=== PATIENT | male | born 1965 | race Caucasian/White ===

== ENCOUNTER 2018-07-20 17:09 | Inpatient (IN) | payer OTHER ==
[2018-07-20] MEDS ORDERED: Sodium Chloride 0.9% 1000 ML 1,000 ML IV STA ×3 (17:30→17:41)
[2018-07-20] MEDS ORDERED: Zofran 4 MG/2 ML VIAL IV ONE (17:32)
[2018-07-20] MEDS ORDERED: MORPHINE SULFATE 4 MG INJ IV ONE ×2 (17:32→18:11)
[2018-07-20] MEDS ORDERED: ROCEPHIN 1 Gm-D5w 50 ml Bag** 1 G/50 ML IVPB IV STA (17:34)
[2018-07-20] MEDS ORDERED: TYLENOL 325 MG PO ONE (17:35)
[2018-07-20] MEDS ORDERED: Zofran 4 MG/2 ML VIAL ONE (17:39)
[2018-07-20] MEDS ORDERED: Sodium Chloride 0.9% 1000 ML 2,000 ML ONE (17:39)
[2018-07-20] MEDS ORDERED: TYLENOL 325 MG ONE (17:39)
[2018-07-20] MEDS ORDERED: MORPHINE SULFATE 4 MG INJ ONE ×2 (17:39→18:16)
[2018-07-20] MEDS ORDERED: ROCEPHIN 1 Gm-D5w 50 ml Bag** 1 G/50 ML IVPB IV ONE (17:39)
--- NOTE | 2018-07-20 17:40 | ERPHSYRPT ---
- History of Present Illness Source: patient Exam Limitations: no limitations Patient Subjective Stated Complaint: pt states he has had a "cold, sinus stuff and a fever for a week". pt reports today approx 1100 pt was laying on couch when he had sudden onset of left back pain that radiated around left ribs to chest. Triage Nursing Assessment: PALE/WARM/DIAPHORETIC, RESP SHALLOW AND RAPID PT STATES DUE TO PAIN HE IS UNABLE TO TAKE A DEEP ENOUGH BREATH, A&OX4, ABLE TO STAND FROM WHEELCHAIR AND GET INTO BED WITHOUT DIFFICULTY. Timing/Duration: other (upper respiratory symptoms and fever for one week pain left lower chest radiating to back, worse with breathing, symptoms since 11: 00 today) Severity: moderate Modifying Factors: Improves With: other (Pain worse with deep breathing) Associated Symptoms: shortness of breath (Short of breath because it hurts to breath), diaphoresis, chest pain (Sharp pain left lower chest worse with breathing radiates to back), fever, malaise, No nausea, No vomiting, No abdominal pain, No heartburn, No cough, No chills, No headaches, No loss of appetite, No rash, No syncope, No seizure, No weakness Hx Tetanus, Diphtheria Vaccination/Date Given: No Hx Influenza Vaccination/Date Given: No Hx Pneumococcal Vaccination/Date Given: No Immunizations Up to Date: Yes <MARIANELA GOMEZ - Last Filed: 07/20/18 19:08> <MANN MUNOZ - Last Filed: 07/20/18 21:23> - History of Present Illness Time Seen by Provider: 07/20/18 17:25 Physician History: Is a 53-year-old white male who states she's been previously healthy arrives with a complaint of cold, sinus symptoms with increased temperature for one week however he states that beginning at 11:00 this evening he began to have pain in the left lower chest sharp radiating to his back worse with breathing. Patient arrives markedly diaphoretic he states it hurts to breathe. He denies any injury. He states he has not been having any vomiting. Past medical history patient denies. Past surgical history includes wisdom teeth. Social history positive chews tobacco 2-3 beers a day. (MARIANELA GOMEZ) The patient is a 53-year-old male with a friend complaining of a sudden onset of left rib pain in his back, his side, and front that began this afternoon. It worsens significantly as they were driving to the hospital. It was hurting so much that it was hard for him to breathe and he began to sweat profusely. Dr. Gomez began the workup and gave him 3 L of normal saline, morphine 8 mg, and Rocephin 1 g by IV. The patient is feeling better now. Today is Thursday, on Thursday the patient did not feel well. He had a fever and muscle aches. On Thursday he felt worse was tremendous muscle pains. He did not go to work on Thursday because of the fever and not feeling well. He denies vomiting or diarrhea. He states he had a sinus headache area. His past medical history is unremarkable. He takes no prescription medicines. ( MANN MUNOZ) Allergies/Adverse Reactions: No Known Drug Allergies Allergy (Unverified 07/20/18 17:22) Home Medications: Mv-Mn/Folic Acid/Lutein/[id number] [Pawel Multi For Men Tablet] 1 tab PO DAILY [History] Naproxen Sodium [Aleve] 440 mg PO DAILY 07/20/18 [History] - Review of Systems Constitutional: Fever, No Chills, No Fatigue, No Lethargy, No Night Sweats, No Weakness, No Weight Loss, No Other Eyes: No Symptoms Ears, Nose, & Throat: Nose Congestion, Nose Discharge, No Ear Pain, No Ear Discharge, No Hearing Changes, No Tinnitus, No Nose Pain, No Sinus Drainage, No Epistaxis, No Mouth Pain, No Mouth Swelling, No Loose Teeth, No Throat Pain, No Throat Swelling, No Hoarse, No Painful Swallowing, No Snoring, No Stridor Respiratory: Dyspnea, Other (Pain with breathing left lower chest radiates to back sharp) Cardiac: Chest Pain (sharp pain left lower chest with breathing radiates to back ) Abdominal/Gastrointestinal: No Abdominal Pain, No Nausea, No Vomiting, No Diarrhea Genitourinary Symptoms: No Dysuria Musculoskeletal: Back Pain, No Neck Pain Skin: No Rash Neurological: No Dizziness, No Focal Weakness, No Sensory Changes Psychological: No Symptoms Endocrine: No Symptoms All Other Systems: Reviewed and Negative <MARIANELA GOMEZ - Last Filed: 07/20/18 19:08> - Past Medical History Pertinent Past Medical History: No - Past Surgical History Past Surgical History: Yes Other Surgical History: WISDOM TEETH - Social History Smoking Status: Never smoker Exposure to second hand smoke: No Drug Use: none Patient Lives Alone: No <MARIANELA GOMEZ - Last Filed: 07/20/18 19:08> - Physical Exam General Appearance: moderate distress, alert, other (well-developed white male . Diaphoretic somewhat dusky in appearance, alert, oriented 3) Ears, Nose, Throat Exam: normal ENT inspection, TMs normal, pharynx normal, moist mucous membranes Neck Exam: normal inspection, non-tender, supple, full range of motion Respiratory Exam: diminished breath sounds, rhonchi (scattered rhonchi), other ( breath sounds present bilaterally, pain with breathing left lower chest) Cardiovascular Exam: tachycardia, capillary refill <2 sec Gastrointestinal/Abdomen Exam: soft, normal bowel sounds, No tenderness, No mass Back Exam: normal inspection, normal range of motion, No CVA tenderness, No vertebral tenderness Extremity Exam: normal inspection, normal range of motion, pelvis stable Neurologic Exam: alert, oriented x 3, cooperative, 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 design 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-XII 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 as tested, normal mood/affect, nml cerebellar function, nml station & gait, sensation nml, No motor deficits Skin Exam: other (dusky in appearance) SpO2 Interpretation: normal (94%) SpO2: 94 <MARIANELA GOMEZ - Last Filed: 07/20/18 19:08> - Physical Exam Respiratory Exam: chest tenderness (left anterior) Back Exam: point tenderness (left posterior rib pain) <MANN MUNOZ - Last Filed: 07/20/18 21:23> - Nursing Vital Signs Nursing Vital Signs: Initial Vital Signs Temperature 102.0 F 07/20/18 17:11 Pulse Rate 108 H 07/20/18 17:11 Respiratory Rate 28 H 07/20/18 17:11 Blood Pressure 149/99 07/20/18 17:11 O2 Sat by Pulse Oximetry 94 L 07/20/18 17:11 Pain Scale Pain Intensity 4 - Course Nursing assessment & vital signs reviewed: Yes EKG Interpreted by Me: RATE (109 bpm), Sinus Tach, NORMAL AXIS, Other (EKG: Sinus tachycardia 109 bpm, normal axis, no acute ST or T wave changes) <MARIANELA GOMEZ - Last Filed: 07/20/18 19:08> - Radiology Exams Chest X-ray Interpretation: Interpreted by me, No Pneumonia, Other (poor inspiratory effort; possible bilateral plueral effusions. no comp) - CT Exams Chest CT Interpretation: Tele-radiologist Report (per Dr Gonzalez), No PE (no central PE), Other (bibasilar atselecstasis; L>R effusion) <MANN MUNOZ - Last Filed: 07/20/18 21:23> Ordered Tests: Active Orders 24 hr Category Date Time Status Lard Refiner STAT Care 07/20/18 17:31 Active EKG-ER Only STAT Care 07/20/18 17:23 Active IV Insertion STAT Care 07/20/18 17:23 Active IV Insertion-2nd Peripheral STAT Care 07/20/18 17:39 Active Oxygen-ED Only Nasal Cannula 2 lpm Care 07/20/18 17:58 Active CHEST 1 VIEW (PORTABLE) Stat Exams 07/20/18 17:31 Taken CHEST WITH CONTRAST [CT] Stat Exams 07/20/18 18:16 Taken AMYLASE Stat Lab 07/20/18 20:00 Completed BLOOD CULTURE Stat Lab 07/20/18 18:30 Received CBC W DIFF Stat Lab 07/20/18 17:30 Completed CMP Stat Lab 07/20/18 17:30 Completed CULTURE,SPUTUM Stat Lab 07/20/18 17:31 Uncollected D-DIMER QUANTITATION Stat Lab 07/20/18 17:30 Completed LIPASE Stat Lab 07/20/18 20:00 Completed Lactic Acid Stat Lab 07/20/18 17:55 Completed Lactic Acid Stat Lab 07/20/18 20:00 Ordered NT PRO BNP Stat Lab 07/20/18 17:30 Completed PROTIME WITH INR Stat Lab 07/20/18 17:30 Completed PTT Stat Lab 07/20/18 17:30 Completed TROPONIN Q3H Lab 07/20/18 17:30 Completed TROPONIN Q3H Lab 07/20/18 20:30 Ordered TROPONIN Q3H Lab 07/20/18 23:30 Ordered TROPONIN Q3H Lab 07/21/18 02:30 Ordered TROPONIN Q3H Lab 07/21/18 05:30 Ordered UA W/RFX UR CULTURE Stat Lab 07/20/18 18:30 Completed VENOUS BLOOD GAS Stat Lab 07/20/18 17:55 Completed Medication Summary Discontinued Medications Generic Name Dose Route Start Last Admin Trade Name Freq PRN Reason Stop Dose Admin Acetaminophen 975 mg 07/20/18 17:35 07/20/18 17:44 Tylenol 325 Mg PO 07/20/18 17:36 975 mg STAT ONE Administration Acetaminophen Confirm 07/20/18 17:39 Tylenol 325 Mg Administered 07/20/18 17:40 Dose 975 mg .ROUTE .STK-MED ONE Sodium Chloride 1,000 mls @ 999 mls/hr 07/20/18 17:30 07/20/18 18:43 Sodium Chloride 0.9% 1000 Ml IV 07/20/18 18:30 Infused .Q1H1M STA Infusion Sodium Chloride 1,000 mls @ 999 mls/hr 07/20/18 17:32 07/20/18 18:44 Sodium Chloride 0.9% 1000 Ml IV 07/20/18 18:32 Infused .Q1H1M STA Infusion Ceftriaxone Sodium/Dextrose 1 g in 50 mls @ 100 mls/hr 07/20/18 17:34 18:15 Rocephin 1 Gm-D5w 50 Ml Bag IV 07/20/18 18:03 Infused STAT STA Infusion Sodium Chloride Confirm 07/20/18 17:39 Sodium Chloride 0.9% 1000 Ml Administered 07/20/18 17:40 Dose 2,000 mls @ ud .ROUTE .STK-MED ONE Ceftriaxone Sodium/Dextrose Confirm 07/20/18 17:39 Rocephin 1 Gm-D5w 50 Ml Bag Administered 07/20/18 17:40 Dose 1 g in 50 mls @ ud IV .STK-MED ONE Sodium Chloride 1,000 mls @ 999 mls/hr 07/20/18 17:41 07/20/18 19:22 Sodium Chloride 0.9% 1000 Ml IV 07/20/18 18:41 Infused .Q1H1M STA Infusion Sodium Chloride Confirm 07/20/18 18:16 Sodium Chloride 0.9% 1000 Ml Administered 07/20/18 18:17 Dose 1,000 mls @ ud .ROUTE .STK-MED ONE Morphine Sulfate 4 mg 07/20/18 17:32 07/20/18 17:43 Morphine Sulfate 4 Mg Inj IV 07/20/18 17:33 4 mg STAT ONE Administration Morphine Sulfate Confirm 07/20/18 17:39 Morphine Sulfate 4 Mg Inj Administered 07/20/18 17:40 Dose 4 mg .ROUTE .STK-MED ONE Morphine Sulfate 4 mg 07/20/18 18:11 07/20/18 18:22 Morphine Sulfate 4 Mg Inj IV 07/20/18 18:12 4 mg STAT ONE Administration Morphine Sulfate Confirm 07/20/18 18:16 Morphine Sulfate 4 Mg Inj Administered 07/20/18 18:17 Dose 4 mg .ROUTE .STK-MED ONE Ondansetron HCl 4 mg 07/20/18 17:32 07/20/18 17:43 Zofran 4 Mg/2 Ml Vial IV 07/20/18 17:33 4 mg STAT ONE Administration Ondansetron HCl Confirm 07/20/18 17:39 Zofran 4 Mg/2 Ml Vial Administered 07/20/18 17:40 Dose 4 mg .ROUTE .STK-MED ONE Lab/Rad Data: Laboratory Result Diagrams 07/20/18 17:30 07/20/18 17:30 Laboratory Results 07/20/18 07/20/18 07/20/18 Range/Units Unknown 20:00 18:30 WBC (4.0-10.5) K/mm3 RBC (4.1-5.6) M/mm3 Hgb (12.5-18.0) gm/dl Hct (42-50) % MCV (78-100) fl MCH (26-32) pg MCHC (32-36) g/dl RDW (11.5-14.0) % Plt Count (150-450) K/mm3 MPV (6-9.5) fl Gran % (36.0-66.0) % Eos # (Auto) (0-0.5) Absolute Lymphs (auto) (1.0-4.6) Absolute Monos (auto) (0.0-1.3) Lymphocytes % (24.0-44.0) % Monocytes % (0.0-12.0) % Eosinophils % (0.00-5.0) % Basophils % (0.0-0.4) % Absolute Granulocytes (1.4-6.9) Basophils # (0-0.4) PT (8.83-12.87) SECONDS INR (0.8-3.0) APTT (24.1-36.1) SECONDS D-Dimer (215-500) ng/mL pO2/FiO2 Ratio % VBG pH (7.32-7.42) VBG pCO2 at Pat Temp (42-55) mm/Hg VBG pO2 at Pat Temp (25-40) mm/Hg VBG HCO3 (22-28) meq/L VBG O2 Sat (Neil) (95-100) VBG Base Excess (-2.0-2.0) VBG Hemoglobin VBG Carboxyhemoglobin (0.0-6.9) % T HGB POC Potassium (3.5-5.1) Sodium (137-145) mmol/L Potassium (3.5-5.1) mmol/L Chloride (98-107) mmol/L Carbon Dioxide (22-30) mmol/L Anion Gap (5-15) MEQ/L BUN (9-20) mg/dL Creatinine (0.66-1.25) mg/dL Estimated GFR ML/MIN Glucose (74-106) mg/dL Lactic Acid (0.4-2.0) Calcium (8.4-10.2) mg/dL Total Bilirubin (0.2-1.3) mg/dL AST (17-59) U/L ALT (0-50) U/L Alkaline Phosphatase (38-126) U/L Troponin I (0.000-0.034) ng/mL NT-Pro-B Natriuret Pep (0-900) pg/mL Serum Total Protein (6.3-8.2) g/dL Albumin (3.5-5.0) g/dL Amylase < 30 L (30-110) U/L Lipase 26 (23-300) U/L Urine Color YELLOW (YELLOW) Urine Appearance CLEAR (CLEAR) Urine pH 5.0 (5-6) Ur Specific [place] 1.025 (1.005-1.025) Urine Protein NEGATIVE (Negative) Urine Ketones NEGATIVE (NEGATIVE) Urine Blood NEGATIVE (0-5) Hunter/ul Urine Nitrite NEGATIVE (NEGATIVE) Urine Bilirubin NEGATIVE (NEGATIVE) Urine Urobilinogen NORMAL (0-1) mg/dL Ur Leukocyte Esterase NEGATIVE (NEGATIVE) Urine Culture Reflexed NO (NO) Urine Glucose NEGATIVE (NEGATIVE) mg/dL Influenza Type A Ag (NEGATIVE) Influenza Type B Ag (NEGATIVE) RSV (PCR) (Negative) Group A Strep Antibody NEGATIVE (NEGATIVE) 07/20/18 07/20/18 07/20/18 Range/Units 17:55 17:30 17:30 WBC (4.0-10.5) K/mm3 RBC (4.1-5.6) M/mm3 Hgb (12.5-18.0) gm/dl Hct (42-50) % MCV (78-100) fl MCH (26-32) pg MCHC (32-36) g/dl RDW (11.5-14.0) % Plt Count (150-450) K/mm3 MPV (6-9.5) fl Gran % (36.0-66.0) % Eos # (Auto) (0-0.5) Absolute Lymphs (auto) (1.0-4.6) Absolute Monos (auto) (0.0-1.3) Lymphocytes % (24.0-44.0) % Monocytes % (0.0-12.0) % Eosinophils % (0.00-5.0) % Basophils % (0.0-0.4) % Absolute Granulocytes (1.4-6.9) Basophils # (0-0.4) PT 14.3 H (8.83-12.87) SECONDS INR 1.23 (0.8-3.0) APTT 25.3 (24.1-36.1) SECONDS D-Dimer 535 H* (215-500) ng/mL pO2/FiO2 Ratio 21.0 % VBG pH 7.39 (7.32-7.42) VBG pCO2 at Pat Temp 40 L (42-55) mm/Hg VBG pO2 at Pat Temp 50 H (25-40) mm/Hg VBG HCO3 24.2 (22-28) meq/L VBG O2 Sat (Neil) 90.9 L (95-100) VBG Base Excess -0.7 (-2.0-2.0) VBG Hemoglobin 16.1 VBG Carboxyhemoglobin 3.5 (0.0-6.9) % T HGB POC Potassium 4.0 (3.5-5.1) Sodium 138 (137-145) mmol/L Potassium 4.3 (3.5-5.1) mmol/L Chloride 100 (98-107) mmol/L Carbon Dioxide 25 (22-30) mmol/L Anion Gap 17.3 H (5-15) MEQ/L BUN 19 (9-20) mg/dL Creatinine 1.00 (0.66-1.25) mg/dL Estimated GFR > 60.0 ML/MIN Glucose 132 H (74-106) mg/dL Lactic Acid 1.6 (0.4-2.0) Calcium 9.6 (8.4-10.2) mg/dL Total Bilirubin 1.00 (0.2-1.3) mg/dL AST 29 (17-59) U/L ALT 34 (0-50) U/L Alkaline Phosphatase 93 (38-126) U/L Troponin I (0.000-0.034) ng/mL NT-Pro-B Natriuret Pep 16.9 (0-900) pg/mL Serum Total Protein 8.7 H (6.3-8.2) g/dL Albumin 4.9 (3.5-5.0) g/dL Amylase (30-110) U/L Lipase (23-300) U/L Urine Color (YELLOW) Urine Appearance (CLEAR) Urine pH (5-6) Ur Specific [place] (1.005-1.025) Urine Protein (Negative) Urine Ketones (NEGATIVE) Urine Blood (0-5) Hunter/ul Urine Nitrite (NEGATIVE) Urine Bilirubin (NEGATIVE) Urine Urobilinogen (0-1) mg/dL Ur Leukocyte Esterase (NEGATIVE) Urine Culture Reflexed (NO) Urine Glucose (NEGATIVE) mg/dL Influenza Type A Ag (NEGATIVE) Influenza Type B Ag (NEGATIVE) RSV (PCR) (Negative) Group A Strep Antibody (NEGATIVE) 07/20/18 07/20/18 07/20/18 Range/Units 17:30 17:30 17:25 WBC 11.4 H (4.0-10.5) K/mm3 RBC 5.06 (4.1-5.6) M/mm3 Hgb 15.8 (12.5-18.0) gm/dl Hct 46.7 (42-50) % MCV 92.3 (78-100) fl MCH 31.2 (26-32) pg MCHC 33.8 (32-36) g/dl RDW 12.6 (11.5-14.0) % Plt Count 207 (150-450) K/mm3 MPV 10.9 H (6-9.5) fl Gran % 77.6 H (36.0-66.0) % Eos # (Auto) 0.09 (0-0.5) Absolute Lymphs (auto) 1.08 (1.0-4.6) Absolute Monos (auto) 1.37 H (0.0-1.3) Lymphocytes % 9.5 L (24.0-44.0) % Monocytes % 12.0 (0.0-12.0) % Eosinophils % 0.8 (0.00-5.0) % Basophils % 0.1 (0.0-0.4) % Absolute Granulocytes 8.86 H (1.4-6.9) Basophils # 0.01 (0-0.4) PT (8.83-12.87) SECONDS INR (0.8-3.0) APTT (24.1-36.1) SECONDS D-Dimer (215-500) ng/mL pO2/FiO2 Ratio % VBG pH (7.32-7.42) VBG pCO2 at Pat Temp (42-55) mm/Hg VBG pO2 at Pat Temp (25-40) mm/Hg VBG HCO3 (22-28) meq/L VBG O2 Sat (Neil) (95-100) VBG Base Excess (-2.0-2.0) VBG Hemoglobin VBG Carboxyhemoglobin (0.0-6.9) % T HGB POC Potassium (3.5-5.1) Sodium (137-145) mmol/L Potassium (3.5-5.1) mmol/L Chloride (98-107) mmol/L Carbon Dioxide (22-30) mmol/L Anion Gap (5-15) MEQ/L BUN (9-20) mg/dL Creatinine (0.66-1.25) mg/dL Estimated GFR ML/MIN Glucose (74-106) mg/dL Lactic Acid (0.4-2.0) Calcium (8.4-10.2) mg/dL Total Bilirubin (0.2-1.3) mg/dL AST (17-59) U/L ALT (0-50) U/L Alkaline Phosphatase (38-126) U/L Troponin I < 0.012 (0.000-0.034) ng/mL NT-Pro-B Natriuret Pep (0-900) pg/mL Serum Total Protein (6.3-8.2) g/dL Albumin (3.5-5.0) g/dL Amylase (30-110) U/L Lipase (23-300) U/L Urine Color (YELLOW) Urine Appearance (CLEAR) Urine pH (5-6) Ur Specific [place] (1.005-1.025) Urine Protein (Negative) Urine Ketones (NEGATIVE) Urine Blood (0-5) Hunter/ul Urine Nitrite (NEGATIVE) Urine Bilirubin (NEGATIVE) Urine Urobilinogen (0-1) mg/dL Ur Leukocyte Esterase (NEGATIVE) Urine Culture Reflexed (NO) Urine Glucose (NEGATIVE) mg/dL Influenza Type A Ag NEGATIVE (NEGATIVE) Influenza Type B Ag NEGATIVE (NEGATIVE) RSV (PCR) NEGATIVE (Negative) Group A Strep Antibody (NEGATIVE) - Progress Progress: improved <MARIANELA GOMEZ - Last Filed: 07/20/18 19:08> - Progress Progress: improved Discussed with Dr.: Abigail Will see patient in: hospital (observation) Counseled pt/family regarding: lab results, diagnosis, rad results <MANN MUNOZ - Last Filed: 07/20/18 21:23> - Progress Progress Note: 07/20/18 19:07 Case will be turned over to Dr. Munoz secondary to change. Case has been discussed with Dr. Munoz (MARIANELA GOMEZ) 07/20/18 19:31 Pt care discussed and care accepted from Dr Gomez at 19:00. (MANN MUNOZ) <MARIANELA GOMEZ - Last Filed: 07/20/18 19:08> - Departure Time of Disposition: 21:17 Departure Disposition: Observation (per Dr Hayes) Critical Care Time: No <MANN MUNOZ - Last Filed: 07/20/18 21:23> - Departure Clinical Impression: Chest pain, Dyspnea Condition: Stable Referrals: IRVIN VUONG [Primary Care Provider] -
[2018-07-20 17:55] LABS: Lactic Acid 1.6 (0.4-2.0); VBG BASE EXCESS -0.7 (-2.0-2.0); VBG CARBOXYHEMOGLOBIN 3.5 % T HGB (0.0-6.9); VBG HCO3- 24.2 meq/L (22-28); VBG HEMOGLOBIN 16.1; VBG O2 SATURATION 90.9 (95-100); VBG pH 7.39 (7.32-7.42)
[2018-07-20 17:58] LABS: INR 1.23 (0.8-3.0); PROTIME 14.3 SECONDS (8.83-12.87)
[2018-07-20 18:01] LABS: PTT 25.3 SECONDS (24.1-36.1)
[2018-07-20 18:12] LABS: ALBUMIN 4.9 g/dL (3.5-5.0); ALKALINE PHOSPHATASE 93 U/L (38-126); ANION GAP 17.3 MEQ/L (5-15); BASOPHIL % 0.1 % (0.0-0.4); BLOOD UREA NITROGEN 19 mg/dL (9-20); Basophil (Absolute #) 0.01 (0-0.4); CHLORIDE 100 mmol/L (98-107); Calcium 9.6 mg/dL (8.4-10.2); Carbon Dioxide 25 mmol/L (22-30); Eosinophil % 0.8 % (0.00-5.0); Eosinophil (Absolute #) 0.09 (0-0.5); Glucose 132 mg/dL (74-106); Granulocyte Absolute (ANC) 8.86 (1.4-6.9); Granulocytes % 77.6 % (36.0-66.0); Hematocrit 46.7 % (42-50); Hemoglobin 15.8 gm/dl (12.5-18.0); Lymphocyte (Absolute #) 1.08 (1.0-4.6); Lymphocytes % 9.5 % (24.0-44.0); Mean Cell Volume 92.3 fl (78-100); Mean Corpuscular Hemoglobin 31.2 pg (26-32); Mean Corpuscular Hgb Concent. 33.8 g/dl (32-36); Mean Platelet Volume 10.9 fl (6-9.5); Monocyte (Absolute #) 1.37 (0.0-1.3); NT PRO BNP 16.9 pg/mL (0-900); Platelet Count 207 K/mm3 (150-450); Potassium 4.3 mmol/L (3.5-5.1); Red Blood Count 5.06 M/mm3 (4.1-5.6); Red Cell Distribution Width 12.6 % (11.5-14.0); SGOT/AST 29 U/L (17-59); SGPT/ALT 34 U/L (0-50); SODIUM 138 mmol/L (137-145); Total Protein 8.7 g/dL (6.3-8.2); White Blood Count 11.4 K/mm3 (4.0-10.5)
[2018-07-20] MEDS ORDERED: Sodium Chloride 0.9% 1000 ML 1,000 ML ONE (18:16)
[2018-07-20 18:35] LABS: INFLUENZA A NEGATIVE (NEGATIVE); INFLUENZA B NEGATIVE (NEGATIVE); RESPIRATORY SYNCTIAL VIRUS NEGATIVE (Negative)
[2018-07-20 18:39] LABS: Appearance CLEAR (CLEAR); Bilirubin NEGATIVE (NEGATIVE); Blood NEGATIVE Ery/ul (0-5); Glucose NEGATIVE (NEGATIVE); Ketones NEGATIVE (NEGATIVE); Leukocyte Esterase NEGATIVE (NEGATIVE); Nitrite NEGATIVE (NEGATIVE); Protein,Urine Dip NEGATIVE (Negative); Specific Gravity 1.025 (1.005-1.025); Urobilinogen NORMAL mg/dL (0-1)
[2018-07-20 20:17] LABS: AMYLASE < 30 U/L (30-110); LIPASE 26 U/L (23-300)
[2018-07-20] MEDS ORDERED: BABY ASPIRIN 81 MG CHEW PO ONE (21:20)
[2018-07-20] MEDS ORDERED: Zofran 4 MG/2 ML VIAL IV PRN (22:17)
[2018-07-20] MEDS ORDERED: MAALOX ES 30 ML UNIT DOSE PO PRN (22:17)
[2018-07-20] MEDS ORDERED: MILK OF MAGNESIA 30 ML PO PRN (22:17)
[2018-07-20] MEDS ORDERED: Senokot-S Tablet PO PRN (22:17)
[2018-07-20] MEDS ORDERED: TYLENOL 325 MG PO PRN (22:17)
[2018-07-20] MEDS ORDERED: Nitrostat 0.4 MG Tablet SL PRN (22:17)
[2018-07-21] MEDS ORDERED: MORPHINE SULFATE 4 MG INJ IV PRN (03:43)
[2018-07-21] MEDS ORDERED: Cyclobenzaprine 10 MG PO ONE (03:43)
[2018-07-21] MEDS ORDERED: Morphine PCA 1 MG/ML 30 ML IV PRN (05:40)
[2018-07-21] MEDS ORDERED: Sodium Chloride 0.9% 1000 ML 1,000 ML ONE (05:53)
[2018-07-21 06:16] LABS: Risk Ratio 3.1
--- NOTE | 2018-07-21 08:34 | XRAY ---
Indication: Short of breath. Chest/back pain. Elevated d-dimer. Multiple contiguous axial images obtained through the chest using 80 cc Isovue 370 contrast and PE protocol. Comparison: None There is adequate opacification of the pulmonary arteries. However respiration artifact limits evaluation of the more distal lobar and segmental branches. No central pulmonary embolus. Heart is not enlarged. Aorta is normal in course and caliber. Right paratracheal calcified nodes. No pathologic mediastinal/hilar lymphadenopathy. Examination of the lung parenchyma demonstrates underinflated lungs with bibasilar atelectasis, left greater than right. Also small left and tiny right effusions. Bony thorax intact. Limited upper abdomen demonstrates fatty liver. Impression: 1. Pulmonary embolus evaluation limited by respiration artifact. No central pulmonary embolus. 2. Underinflated lungs with bibasilar atelectasis and effusions, left greater than right. 3. Fatty liver. CT DI 23.68
--- NOTE | 2018-07-21 08:36 | XRAY ---
Indication: Pain and short of breath. Comparison: None Portable apical lordotic chest markedly underinflated with small bibasilar effusions. Upper lungs clear. Heart is not enlarged. Bony thorax intact. Impression: Underinflated chest with nonspecific effusions.
[2018-07-21] MEDS ORDERED: TORAdol 30 mg Injection IV PRN (10:22)
[2018-07-21] MEDS: Ecotrin 325 MG PO SCH (10:33)
[2018-07-21] MEDS: solu-MEDROL 125 MG IV SCH ×3 (10:33→23:59)
[2018-07-21] MEDS: THERAGRAN MULTIVITAMIN PO SCH (10:50)
[2018-07-21] MEDS: ENOXAPARIN SODIUM SQ SCH (10:50)
[2018-07-21] MEDS: Zithromax 500 MG/ 250 ML NaCl Premix 500 MG/250 ML IVPB IV SCH (10:50)
--- NOTE | 2018-07-21 10:59 | HP ---
CHIEF COMPLAINT: Shortness of breath, chest pain. HISTORY OF PRESENT ILLNESS: The patient is a 53 year-old white male patient who reports approximately five days ago he began feeling bad with fever, chills and sweats. He reports that on Thursday he cut down a tree and did okay but by Thursday he was feeling so bad that all he could do is lay on the couch for the next couple of days. By the morning of 07/20/2018, he was feeling much worse having severe chest pains. It got to the point where he could not tolerate it anymore and presented himself to the emergency room for evaluation. On initial evaluation in the emergency room the patient was ashen, panting and in severe pain. PAST MEDICAL HISTORY: Essentially unremarkable. PAST SURGICAL HISTORY: His medical history otherwise also is unremarkable. MEDICATIONS: He takes no medications routinely. Vitamins. ALLERGIES: NKDA. PHYSICAL EXAMINATION: Showed a temperature of 102F in the emergency room with a pulse 108, respiratory rate 28, blood pressure 149/99. O2 saturation 94%. HEENT: Normocephalic, atraumatic. Pupils equal round reactive to light. He is wearing oxygen by nasal cannula. Oropharynx is pink and moist. NECK: Supple without lymphadenopathy, thyromegaly or JVD. CHEST: Essentially clear to auscultation. HEART: Regular rate and rhythm somewhat tachycardic. No murmurs, rubs or gallops heard. ABDOMEN: Soft. No palpable masses. EXTREMITIES: Without cyanosis, clubbing or edema. NEUROLOGIC: The patient is alert and oriented x3 with no focal deficits. LAB DATA AND TESTS: Revealed troponins less than 0.012. Group A strep was negative. Respiratory syncytial virus and influenza A/B were negative. His UA was normal with specific gravity of 1.025. Venous blood gas with pH 7.39, pCO2 40. Amylase and lipase are normal. D-Dimer slightly elevated at 535. CT with pulmonary embolism protocol negative for pulmonary embolism. There was fluid in the left costophrenic angle noted on the chest CT. His metabolic panel was essentially normal with sugar 132, BUN 19, creatinine 1.0. His white blood cell count 7,400 with 77.6% granulocytes, hemoglobin 15.8, PLT count 207,000. ASSESSMENT: A patient with severe chest pain creating tachypnea. He is holding his own currently otherwise though as far as his oxygenation and pCO2. 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 He appears to be in pain at a level of approximately 6 out of 10. The patient will receive blood cultures if they have not already been done. We will empirically start him on Rocephin and Zithromax. Obtain pulmonary consultation as there is concern for the patient to possibly develop ARDS syndrome. The patient has a flu-like illness although influenza swab is negative. He is too late to receive Tamiflu to help with the illness at the present time. We will monitor him closely and again obtain pulmonary consultation.
--- NOTE | 2018-07-21 11:53 | XRAY ---
Indication: Short of breath. Comparison: One day earlier. Portable chest remains markedly underinflated with worsening left base infiltrate/atelectasis/effusion. Stable small right effusion with new discoid atelectasis. Remaining heart and lungs unremarkable.
[2018-07-21] MEDS ORDERED: PROVENTIL 2.5 MG/3 ML NEB IH ONE (14:43)
--- NOTE | 2018-07-21 15:11 | CONS ---
CONSULT DATE: 07/21/2018 REASON FOR CONSULT: Evaluation of shortness of breath, abnormal chest x-ray. HISTORY: Jaxon Rocha is a 53 year-old male without any significant past medical history who started feeling sick for about two to three days to his admission. The patient reportedly initially had symptoms of mild GI and arthralgia. He apparently had x-ray done on Thursday. However subsequently started having cough, high grade fever and shortness of breath with pleuritic-type change involving mainly the left side of the chest. He presented to the emergency room at [facility] where a chest x-ray revealed infiltrates and atelectasis involving left lung base. The patient had been admitted with pleuritic pain and was started on antibiotic along with TRAIN ENGINEER for control of pain. However the TRAIN ENGINEER controlled his pain and CT performed today showed increasing pleural effusion particularly on the left side. The patient has also been short of breath with any activity such as walking. Patient categorically denies any previous pulmonary problems. He has not been in contact with anyone. He also denies taking influenza vaccine earlier this year. PAST MEDICAL HISTORY: Essentially negative. PAST SURGICAL HISTORY: Negative. PERSONAL AND SOCIAL HISTORY: He is a nonsmoker. He works for a local [employer]. MEDICATIONS: None. ALLERGIES: NKDA. PHYSICAL EXAMINATION: Vital signs noted. This is a middle-age male who appears comfortable, able to speak without difficulty. Vital signs noted. HEENT: Normocephalic. Oral exam unremarkable. CVS: First and second heart sounds are normal, regular, rhythmic. RESPIRATORY: Shows absent breath sounds one-third on the left side. Occasional crackles are also heard. ABDOMEN: Soft. No edema is noted. LABORATORY DATA AND TESTS: White blood cell count 11.4, hemoglobin 15.8, hematocrit 46, PLT 207,000. Sodium 138, potassium 4.3, chloride 100, bicarb 25, glucose 142, BUN 19, creatinine 1.0. ABG showed pH of 7.3, pCO2 40, pCO2 50 currently on oxygen via nasal cannula. ESR 53. Chest x-ray shows pleural effusion and atelectasis. ASSESSMENT: This is a 53 year old man admitted with: 1) Severe left-sided pleuritic pain which appears to be pleurisy from underlying community acquired pneumonia. 2) Significant hypoxia. 3) Pleural effusion likely parapneumonic, empyema? RECOMMENDATIONS: 1) The patient is continued on broad spectrum antibiotics. 2) I certainly agree with TRAIN ENGINEER for control of pain. 3) Continue incentive spirometry. 4) Add bronchodilators for pulmonary toilet. I have discussed with the patient the complexities of parapneumonic effusion, will get repeat chest x-ray tomorrow. Likely given significant volume loss I believe the patient may require decortication and if desired will possibly transfer to [facility] for surgical evaluation of the same. In the meantime continue with current care. I discussed the plan of care with the patient.
[2018-07-21] MEDS: PROVENTIL 2.5 MG/3 ML NEB IH SCH ×2 (15:16→18:38)
[2018-07-21] MEDS ORDERED: PROVENTIL Solution 2.5 MG/0.5 ML IH ONE (16:52)
[2018-07-21] MEDS ORDERED: ROCEPHIN 1 Gm-D5w 50 ml Bag** 1 G/50 ML IVPB IV SCH (18:00)
[2018-07-22] MEDS: PROVENTIL 2.5 MG/3 ML NEB IH SCH ×4 (00:12→19:22)
[2018-07-22] MEDS ORDERED: Sodium Chloride 0.9% 1000 ML 1,000 ML ONE (00:16)
[2018-07-22] MEDS: Sodium Chloride 0.9% 1000 ML 1,000 ML IV SCH ×2 (00:47→21:42)
[2018-07-22] MEDS: solu-MEDROL 125 MG IV SCH ×3 (06:15→18:05)
--- NOTE | 2018-07-22 08:51 | XRAY ---
Exam: Upright two-view chest series from 07/22/2018. Comparison: AP upright portable chest film from 07/21/2018. Indication: Follow-up pneumonia. Findings: Upright frontal and lateral chest films are submitted for evaluation. The heart size remains within normal limits. Lung volumes are again noted to be low. There is left basilar airspace disease with the presence of some retrocardiac air bronchograms and obscuration of the left hemidiaphragm. This may be due to pneumonic infiltrate with perhaps some concomitant atelectasis. In addition, there is a moderate-sized pleural fluid collection along the lateral aspect of the lower two thirds of the left lung which is easier to see on the current study. This displays a convex border with respect to the opposing left lung. This is consistent with a moderate left pleural effusion which could be mildly loculated. Follow-up is recommended to exclude the possibility of a developing empyema because of its contour with respect to the opposing left lung, although it is still possible this simply represents a partially loculated left pleural effusion. The left upper lung field remains clear. The right lung base is remarkable for streaky subsegmental plate atelectasis. This is mildly increased as compared to yesterday's film. I appreciate no definite pleural fluid blunting the right lateral or right posterior lung sulci. The remainder of the right lung appears clear. No pneumothorax is seen on either side of midline. No acute osseous process is seen. Some degenerative changes are seen within the visualized lumbar spine at the inferior aspect of the lateral image. Impression: 1. I again see evidence of significant left basilar airspace infiltrate with probable concomitant left lower lobe atelectasis and a moderate-sized left pleural effusion which may be mildly loculated. See above discussion. Allowing for the difference in inspiration levels with the previous study, I don't believe this represents a significant change. 2. Mild increased right basilar subsegmental atelectasis. Otherwise, the right lung appears clear.
[2018-07-22 09:04] LABS: BASOPHIL % 0.1 % (0.0-0.4); Basophil (Absolute #) 0.02 (0-0.4); Eosinophil % 0.2 % (0.00-5.0); Eosinophil (Absolute #) 0.03 (0-0.5); Granulocyte Absolute (ANC) 14.13 (1.4-6.9); Granulocytes % 90.5 % (36.0-66.0); Hematocrit 40.5 % (42-50); Hemoglobin 13.6 gm/dl (12.5-18.0); Lymphocyte (Absolute #) 0.54 (1.0-4.6); Lymphocytes % 3.5 % (24.0-44.0); Mean Cell Volume 92.3 fl (78-100); Mean Corpuscular Hgb Concent. 33.6 g/dl (32-36); Mean Platelet Volume 10.4 fl (6-9.5); Monocyte (Absolute #) 0.89 (0.0-1.3); Monocytes % 5.7 % (0.0-12.0); Platelet Count 227 K/mm3 (150-450); Red Blood Count 4.39 M/mm3 (4.1-5.6); Red Cell Distribution Width 12.4 % (11.5-14.0); White Blood Count 15.6 K/mm3 (4.0-10.5)
[2018-07-22 09:20] LABS: Slide Review 1 YES
[2018-07-22 09:50] LABS: ALKALINE PHOSPHATASE 85 U/L (38-126); ANION GAP 16.5 MEQ/L (5-15); BLOOD UREA NITROGEN 23 mg/dL (9-20); CHLORIDE 102 mmol/L (98-107); Calcium 9.3 mg/dL (8.4-10.2); Carbon Dioxide 26 mmol/L (22-30); Creatinine 1 0.91 mg/dL (0.66-1.25); Glucose 216 mg/dL (74-106); Potassium 3.9 mmol/L (3.5-5.1); SGOT/AST 33 U/L (17-59); SGPT/ALT 33 U/L (0-50); SODIUM 141 mmol/L (137-145); Total Protein 7.3 g/dL (6.3-8.2)
[2018-07-22] MEDS ORDERED: LUTEIN PO SCH (10:00)
[2018-07-22] MEDS ORDERED: NAPROXEN SODIUM 440 MG PO SCH (10:00)
[2018-07-22] MEDS ORDERED: Naprosyn 500 MG PO SCH (10:00)
[2018-07-22] MEDS ORDERED: FOLIC ACID PO SCH (10:00)
[2018-07-22] MEDS ORDERED: MV MN PO SCH (10:00)
[2018-07-22] MEDS ORDERED: [UNRECOGNIZED DRUG - OTHER] PO SCH (10:00)
[2018-07-22] MEDS: Zithromax 500 MG/ 250 ML NaCl Premix 500 MG/250 ML IVPB IV SCH (10:33)
[2018-07-22] MEDS: THERAGRAN MULTIVITAMIN PO SCH (10:34)
[2018-07-22] MEDS: Ecotrin 325 MG PO SCH (10:34)
[2018-07-22] MEDS: ENOXAPARIN SODIUM SQ SCH (10:34)
--- NOTE | 2018-07-22 10:46 | XRAY ---
Exam: CT of the chest without IV contrast from 07/22/2018. CTDI: 21.11 Comparison: Two-view chest from earlier today on 07/22/2018. Indication: Shortness of breath, dizziness. The patient gives a history of prior surgery within his right lung (not specified). Technique: Non-IV contrast axial images were obtained through the chest and filmed using both soft tissue and lung window techniques. Reconstructed coronal and sagittal images were created and reviewed. Findings: The heart size appears within normal limits without evidence of pericardial effusion. The thyroid gland appears grossly unremarkable. Mild granulomatous calcifications are seen within the distal right paratracheal projection and anterior right hilum. The major central branching bronchi appear open. I again note left basilar consolidation with some air bronchograms consistent with infiltrate and probably concomitant atelectasis. Mild posterior left pleural effusion is seen (for example, see axial image #21). However, there are also 2 separate convex pleural fluid collections seen on the left, one at the posterior left lung base measuring about 8.6 cm in width and 4.9 cm in AP depth on axial image #29. The other is seen at the lateral aspect of the left midlung field and measures about 7.0 cm in AP dimension and 3.4 cm in width on axial image #30. Both of these left-sided pleural fluid collections have a somewhat convex border with respect to the opposing left lung. I'm not sure whether this represents loculated pleural fluid or possibly pneumonia complicated by two empyema collections. For example, see axial image #28. I also note some minimal atelectasis/scarring at the anterior left lung base adjacent to the left epicardial fat pad on axial images #26 through #28. The remainder the left lung appears unremarkable. The right lung reveals mild streaky subsegmental atelectasis at the mid and posterior medial right lung base. In addition, there appears to be some adjacent mild pleural thickening/scarring at the posterior medial right lung base. No air space infiltrates or significant right basilar pleural effusion is seen. The remainder of the right lung field appears clear. There appears to be some mild diffuse hepatic steatosis. The adrenal glands appear normal size and configuration. Abundant intraperitoneal fat is seen. The gallbladder is partially contracted. No definite intraluminal calcified gallstones are seen. No other acute abdominal process is seen within the visualized upper abdomen. On sagittal images #167 and #168, there is a question of a subtle acute or subacute fracture at the anterior lateral aspect of the left eighth rib. In addition, on sagittal images #171 and #172 there is a suggestion of a minimally displaced acute or subacute fracture of the lateral aspect of the left ninth rib. However, neither of these presumed fracture deformities are definitely seen on the axial images. Therefore, it is possible that this is due to motion artifact. Correlate clinically as to point tenderness. Some small Schmorl's nodes are seen within lower thoracic vertebral endplates. No other acute osseous process is seen. Impression: 1. I again see left basilar pneumonic infiltrate with air bronchograms with some probable concomitant left lower lobe atelectasis. 2. In addition to a mild posterior layering left pleural effusion, there are 2 oval-shaped, convex pleural fluid collections within the left lower lung field, one laterally within the left midlung field and one posteriorly within the left lower lung field, as discussed above. I'm not sure whether these represent loculated pleural fluid or perhaps developing empyemas. Correlate clinically. Imaging the patient in the prone position as well as a right lateral decubitus position with CT may be helpful to determine whether these 2 loculated pleural fluid collections remain fixed in position on the nondependent side. 3. I note a small amount of subsegmental atelectasis at the right lung base with some concomitant mild pleural thickening/scarring posterior medially at the right lung base. The remainder of the right lung appears clear. 4. Mild old healed central granulomatous disease is seen on the right. 5. Mild diffuse hepatic steatosis. 6. Although there was a question of acute/subacute fractures of the lateral aspect of the left eighth and ninth ribs on the sagittal reconstructed images, this cannot be confirmed on the axial images. Therefore, this might represent artifact due to breathing motion while the exam was obtained rather than a real finding. Please correlate with point tenderness and history.
[2018-07-22] MEDS: Zosyn 3.375GM/100 Ml D5W 3.375 GM/100 ML IVPB IV SCH ×2 (13:58→21:42)
--- NOTE | 2018-07-22 14:44 | PROG NOTE ---
Events noted. HISTORY: The patient was seen yesterday for pleuritic pain, community acquired pneumonia and pleural effusion. 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 PHYSICAL EXAMINATION: Vital signs noted. HEENT: Normocephalic. Oral exam is unremarkable. NECK: Supple. CVS: First and second heart sounds are normal, regular, rhythmic. RESPIRATORY: Diminished to absent breath sounds one-third to one-half of left side. ABDOMEN: Soft. LABORATORY DATA AND TESTS: Chest x-ray and CT chest from this morning were reviewed. ASSESSMENT: This is a 53 year old man admitted with: 1) Pleuritic pain leading to loculated left pleural effusion likely from community acquired pneumonia. 2) Hypoxemia. RECOMMENDATIONS: If patient requires decortication with Dr. Zhou. We are both in agreement that the patient needs to be on antibiotic prior to undergoing surgical procedure.
[2018-07-22] MEDS: VANCOCIN 1 GM VIAL*** 1.5 GM in Sodium Chloride 0.9% 500 ML 500 ML IV SCH (16:57)
[2018-07-22 22:34] LABS: 027 TOX PROD PRESUMPTIVE NEGATIVE (NEGATIVE); TOXIGENIC C. DIFF ORG NEGATIVE (NEGATIVE)
[2018-07-23] MEDS: solu-MEDROL 125 MG IV SCH ×2 (00:06→05:11)
[2018-07-23] MEDS ORDERED: Mylicon 80MG PO PRN (00:25)
[2018-07-23] MEDS: PROVENTIL 2.5 MG/3 ML NEB IH SCH ×4 (00:37→19:33)
[2018-07-23] MEDS: Zosyn 3.375GM/100 Ml D5W 3.375 GM/100 ML IVPB IV SCH ×3 (05:11→22:06)
[2018-07-23 05:41] LABS: Hematocrit 34.9 % (42-50); Mean Cell Volume 92.3 fl (78-100); Mean Corpuscular Hemoglobin 31.7 pg (26-32); Mean Corpuscular Hgb Concent. 34.4 g/dl (32-36); Mean Platelet Volume 10.2 fl (6-9.5); Platelet Count 245 K/mm3 (150-450); Red Blood Count 3.78 M/mm3 (4.1-5.6); Red Cell Distribution Width 12.3 % (11.5-14.0); White Blood Count 16.2 K/mm3 (4.0-10.5)
[2018-07-23] MEDS: VANCOCIN 1 GM VIAL*** 1.5 GM in Sodium Chloride 0.9% 500 ML 500 ML IV SCH ×2 (05:54→17:17)
[2018-07-23 06:01] LABS: ALBUMIN 3.1 g/dL (3.5-5.0); ALKALINE PHOSPHATASE 61 U/L (38-126); ANION GAP 11.5 MEQ/L (5-15); BLOOD UREA NITROGEN 26 mg/dL (9-20); CHLORIDE 106 mmol/L (98-107); Calcium 8.7 mg/dL (8.4-10.2); Carbon Dioxide 27 mmol/L (22-30); Creatinine 1 0.84 mg/dL (0.66-1.25); Glucose 152 mg/dL (74-106); Potassium 3.7 mmol/L (3.5-5.1); SGOT/AST 45 U/L (17-59); SGPT/ALT 43 U/L (0-50); SODIUM 141 mmol/L (137-145); Total Protein 6.1 g/dL (6.3-8.2)
[2018-07-23 07:04] LABS: BAND 14 % (0.0-2.0); Lymphocytes 1 % (24-44); Monocyte 8 % (0.0-12.0); Neutrophils 77 % (36.-66.); Total Cells Counted 100
[2018-07-23 07:05] LABS: Platelet Estimate NORMAL (NORMAL)
[2018-07-23 07:06] LABS: Granulocyte Absolute (ANC) 13.77 (1.4-6.9)
[2018-07-23] MEDS ORDERED: Norco 10/325 MG Tablet PO PRN (07:19)
[2018-07-23] MEDS ORDERED: MORPHINE SULFATE 4 MG INJ IV PRN (07:19)
[2018-07-23] MEDS ORDERED: TORAdol 30 mg Injection IV PRN (07:22)
[2018-07-23] MEDS: THERAGRAN MULTIVITAMIN PO SCH (08:41)
[2018-07-23] MEDS: Ecotrin 325 MG PO SCH (08:41)
[2018-07-23] MEDS: PROTONIX 40 MG IV IV SCH (08:42)
[2018-07-23] MEDS: ENOXAPARIN SODIUM SQ SCH (08:46)
[2018-07-23] MEDS: solu-MEDROL 40 MG IV SCH ×2 (13:53→22:06)
[2018-07-24] MEDS: PROVENTIL 2.5 MG/3 ML NEB IH SCH ×4 (01:17→20:03)
[2018-07-24] MEDS ORDERED: TROUGH DRUG LEVELS IJ ONE (04:30)
[2018-07-24] MEDS: VANCOCIN 1 GM VIAL*** 1.5 GM in Sodium Chloride 0.9% 500 ML 500 ML IV SCH ×2 (05:02→17:44)
[2018-07-24] MEDS: Sodium Chloride 0.9% 1000 ML 1,000 ML IV SCH (06:01)
[2018-07-24] MEDS: solu-MEDROL 40 MG IV SCH ×3 (07:20→21:08)
[2018-07-24] MEDS: Zosyn 3.375GM/100 Ml D5W 3.375 GM/100 ML IVPB IV SCH ×4 (07:21→17:07)
--- NOTE | 2018-07-24 07:37 | PCM.NOTE ---
Date and Time: 07/24/18733 Subjective Assessment: patient with no new complaints, he is tolerating po intake. doing a neb treatment. gets winded easily with exertion Objective Exam General Appearance: no apparent distress, alert Skin Exam: normal color, warm, dry Respiratory Exam: lungs clear, diminished breath sounds, No respiratory distress Cardiovascular Exam: regular rate/rhythm, normal heart sounds Gastrointestinal/Abdomen Exam: soft, No tenderness, No mass Extremity Exam: normal inspection, normal range of motion OBJECTIVE DATA Vital Signs: Vital Signs - 24 hr Temp Pulse Resp BP BP Pulse Ox 07/24/18 07:29 70 20 92 L 07/24/18 07:18 98.1 F 67 20 106/55 98 07/24/18 01:17 78 18 96 07/24/18 00:44 98.9 F 82 18 131/61 91 L 07/23/18 21:00 98.6 F 78 20 125/70 90 L 07/23/18 19:34 79 18 98 07/23/18 16:25 98.4 F 86 18 136/76 91 L 07/23/18 13:39 96 H 22 85 L 07/23/18 13:00 98.9 F 86 19 118/51 89 L 07/23/18 09:02 94 L 07/23/18 07:43 97.8 F 80 19 136/64 92 L Oxygen-Last 24 hours O2 Percentage 2 Liters = 28% O2 Percentage 2 Liters = 28% O2 Percentage 2 Liters = 28% O2 Percentage 4 Liters = 36% O2 Percentage 4 Liters = 36% Pain Assessment - Last Documented Pain Intensity 1 Pain Scale Used 0-10 Pain Scale Intake and Output: Intake & Output 07/21/18 07/22/18 07/23/18 07/24/18 11:59 11:59 11:59 11:59 Intake Total 620 2332 2900 3344 Output Total 200 1375 240 525 Balance 019 036 9507 2819 Weight 106 kg 105.6 kg 106.9 kg 107 kg Lab Results: Lab Results-Last 24 Hours 07/24/18 Range/Units 04:30 Vancomycin Trough 8.94 L (10-20) ug/mL Radiology Exams: Radiology Procedures Category Date Time Status CHEST WITHOUT CONTRAST [CT] Routine Exams 07/22/18 09:15 Completed Multi-Disciplinary Progress Notes: Multi-Disciplinary Progress Notes 07/23/18 10:25 (created 03/01/19 10:56) Case Management Note by Maria Del Carmen Santillan VISITED WITH PT AND REVIEWED DISCHARGE PLAN, INDEPENDENT WITH ALL ADL'S. DENIES NEEDS FOR DISCHARGE. PLANNING TO RETURN HOME TO PRE EPISODIC LEVEL OF FNX. SIG OTHER AT HOME THAT CAN ASSIST IF NEEDE.D Initialized on 07/23/18 10:56 - END OF NOTE Assessment/Plan (1) Pleurisy with effusion Current Visit: Yes Status: Acute Code(s): J90 - PLEURAL EFFUSION, NOT ELSEWHERE CLASSIFIED (2) Pneumonia Current Visit: Yes Status: Acute Assessment & Plan: continue vanc and zosyn Code(s): J18.9 - PNEUMONIA, UNSPECIFIED ORGANISM (3) Empyema Current Visit: Yes Status: Acute Assessment & Plan: plan is for decortication on Thursday at [facility] Code(s): J86.9 - PYOTHORAX WITHOUT FISTULA
[2018-07-24] MEDS: Ecotrin 325 MG PO SCH (09:22)
[2018-07-24] MEDS: PROTONIX 40 MG IV IV SCH (09:22)
[2018-07-24] MEDS: THERAGRAN MULTIVITAMIN PO SCH (09:22)
[2018-07-24] MEDS: ENOXAPARIN SODIUM SQ SCH ×2 (09:22→12:06)
[2018-07-25] MEDS: Sodium Chloride 0.9% 1000 ML 1,000 ML IV SCH (00:01)
[2018-07-25] MEDS: PROVENTIL 2.5 MG/3 ML NEB IH SCH ×4 (01:00→19:16)
[2018-07-25] MEDS: Zosyn 3.375GM/100 Ml D5W 3.375 GM/100 ML IVPB IV SCH ×3 (01:12→17:10)
[2018-07-25] MEDS: VANCOCIN 1 GM VIAL*** 1.5 GM in Sodium Chloride 0.9% 500 ML 500 ML IV SCH (05:32)
[2018-07-25] MEDS: solu-MEDROL 40 MG IV SCH ×3 (05:32→21:54)
[2018-07-25 05:59] LABS: Hematocrit 34.5 % (42-50); Hemoglobin 11.4 gm/dl (12.5-18.0); Mean Corpuscular Hemoglobin 30.7 pg (26-32); Mean Platelet Volume 9.9 fl (6-9.5); Platelet Count 291 K/mm3 (150-450); Red Blood Count 3.71 M/mm3 (4.1-5.6); White Blood Count 11.8 K/mm3 (4.0-10.5)
[2018-07-25 06:19] LABS: ALBUMIN 2.9 g/dL (3.5-5.0); ALKALINE PHOSPHATASE 64 U/L (38-126); ANION GAP 12.4 MEQ/L (5-15); BLOOD UREA NITROGEN 24 mg/dL (9-20); CHLORIDE 106 mmol/L (98-107); Calcium 8.1 mg/dL (8.4-10.2); Carbon Dioxide 27 mmol/L (22-30); Creatinine 1 0.83 mg/dL (0.66-1.25); Glucose 132 mg/dL (74-106); Potassium 4.3 mmol/L (3.5-5.1); SGOT/AST 42 U/L (17-59); SGPT/ALT 70 U/L (0-50); SODIUM 141 mmol/L (137-145); Total Protein 5.8 g/dL (6.3-8.2)
--- NOTE | 2018-07-25 08:16 | PCM.NOTE ---
Date and Time: 07/25/18814 Subjective Assessment: patient reports he is feeling well today, tolerating regular diet. breathing seems good. Objective Exam General Appearance: no apparent distress, alert Respiratory Exam: normal breath sounds, lungs clear, No respiratory distress Cardiovascular Exam: regular rate/rhythm, normal heart sounds Gastrointestinal/Abdomen Exam: soft, No tenderness, No mass Extremity Exam: normal inspection, normal range of motion OBJECTIVE DATA Vital Signs: Vital Signs - 24 hr Temp Pulse Resp BP BP Pulse Ox 07/25/18 07:38 58 L 18 93 L 07/25/18 07:01 98 F 60 20 131/77 92 L 07/25/18 04:00 98.4 F 67 20 116/74 93 L 07/25/18 01:00 68 20 95 07/24/18 23:20 98.5 F 69 20 119/70 90 L 07/24/18 20:03 64 20 92 L 07/24/18 20:00 98.5 F 65 18 136/62 93 L 07/24/18 16:31 98 F 68 20 134/76 91 L 07/24/18 14:12 76 18 93 L 07/24/18 12:36 97.6 F 92 H 20 139/68 92 L Pain Assessment - Last Documented Pain Intensity 2 Pain Scale Used 0-10 Pain Scale Intake and Output: Intake & Output 07/22/18 07/23/18 07/24/18 07/25/18 11:59 11:59 11:59 11:59 Intake Total 2332 2900 3584 4900 Output Total 1375 658 435 5043 Balance 957 2660 3059 3200 Weight 105.6 kg 106.9 kg 107 kg 111.3 kg Lab Results: Lab Results-Last 24 Hours 07/25/18 07/25/18 Range/Units 05:45 05:45 WBC 11.8 H (4.0-10.5) K/mm3 RBC 3.71 L (4.1-5.6) M/mm3 Hgb 11.4 L (12.5-18.0) gm/dl Hct 34.5 L (42-50) % MCV 93.0 (78-100) fl MCH 30.7 (26-32) pg MCHC 33.0 (32-36) g/dl RDW 13.0 (11.5-14.0) % Plt Count 291 (150-450) K/mm3 MPV 9.9 H (6-9.5) fl Sodium 141 (137-145) mmol/L Potassium 4.3 (3.5-5.1) mmol/L Chloride 106 (98-107) mmol/L Carbon Dioxide 27 (22-30) mmol/L Anion Gap 12.4 (5-15) MEQ/L BUN 24 H (9-20) mg/dL Creatinine 0.83 (0.66-1.25) mg/dL Estimated GFR > 60.0 ML/MIN Glucose 132 H (74-106) mg/dL Calcium 8.1 L (8.4-10.2) mg/dL Total Bilirubin 0.40 (0.2-1.3) mg/dL AST 42 (17-59) U/L ALT 70 H (0-50) U/L Alkaline Phosphatase 64 (38-126) U/L Serum Total Protein 5.8 L (6.3-8.2) g/dL Albumin 2.9 L (3.5-5.0) g/dL Assessment/Plan (1) Pneumonia Current Visit: Yes Status: Acute Assessment & Plan: continue vanc/zosyn Code(s): J18.9 - PNEUMONIA, UNSPECIFIED ORGANISM (2) Empyema Current Visit: Yes Status: Acute Code(s): J86.9 - PYOTHORAX WITHOUT FISTULA (3) Pleurisy with effusion Current Visit: Yes Status: Acute Assessment & Plan: transfer to [facility] tomorrow per Dr Delvis Huang Code(s): J90 - PLEURAL EFFUSION, NOT ELSEWHERE CLASSIFIED
[2018-07-25] MEDS: PROTONIX 40 MG IV IV SCH (09:53)
[2018-07-25] MEDS: THERAGRAN MULTIVITAMIN PO SCH (10:01)
[2018-07-25] MEDS: Ecotrin 325 MG PO SCH (10:01)
[2018-07-25] MEDS: ENOXAPARIN SODIUM SQ SCH (10:01)
[2018-07-25 10:24] LABS: ANISOCYTOSIS 1+; BAND 1 % (0.0-2.0); Lymphocytes 7 % (24-44); Monocyte 9 % (0.0-12.0); Neutrophils 83 % (36.-66.); Platelet Estimate NORMAL (NORMAL); Total Cells Counted 100
[2018-07-25] MEDS: VANCOCIN 1 GM VIAL*** 1.75 GM in Sodium Chloride 0.9% 500 ML 500 ML IV SCH (18:15)
[2018-07-26] MEDS: PROVENTIL 2.5 MG/3 ML NEB IH SCH ×2 (01:00→07:24)
[2018-07-26] MEDS: Sodium Chloride 0.9% 1000 ML 1,000 ML IV SCH (01:09)
[2018-07-26] MEDS: Zosyn 3.375GM/100 Ml D5W 3.375 GM/100 ML IVPB IV SCH (01:09)
[2018-07-26] MEDS: VANCOCIN 1 GM VIAL*** 1.75 GM in Sodium Chloride 0.9% 500 ML 500 ML IV SCH (05:11)
[2018-07-26] MEDS: solu-MEDROL 40 MG IV SCH (05:11)
[2018-07-26 05:55] LABS: Hematocrit 35.1 % (42-50); Hemoglobin 11.6 gm/dl (12.5-18.0); Mean Cell Volume 93.1 fl (78-100); Platelet Count 296 K/mm3 (150-450); Red Blood Count 3.77 M/mm3 (4.1-5.6); Red Cell Distribution Width 13.1 % (11.5-14.0); White Blood Count 12.3 K/mm3 (4.0-10.5)
[2018-07-26 05:58] LABS: Mean Corpuscular Hemoglobin 30.7 pg (26-32)
[2018-07-26 06:13] LABS: ALBUMIN 2.7 g/dL (3.5-5.0); ALKALINE PHOSPHATASE 76 U/L (38-126); ANION GAP 13.4 MEQ/L (5-15); BLOOD UREA NITROGEN 20 mg/dL (9-20); CHLORIDE 106 mmol/L (98-107); Calcium 7.7 mg/dL (8.4-10.2); Carbon Dioxide 21 mmol/L (22-30); Creatinine 1 0.83 mg/dL (0.66-1.25); Glucose 146 mg/dL (74-106); Potassium 4.7 mmol/L (3.5-5.1); SGOT/AST 48 U/L (17-59); SGPT/ALT 55 U/L (0-50); SODIUM 136 mmol/L (137-145); Total Protein 5.5 g/dL (6.3-8.2)
[2018-07-26 06:28] LABS: BAND 1 % (0.0-2.0); Lymphocytes 7 % (24-44); Monocyte 11 % (0.0-12.0); Neutrophils 81 % (36.-66.); Total Cells Counted 100
[2018-07-26 06:29] LABS: Platelet Estimate NORMAL (NORMAL)
[2018-07-26 07:22] VITALS: BP 135/74; PULSE 62; O2SAT 94
--- NOTE | 2018-07-26 08:13 | PCM.DCORD ---
- Discharge Discharge Date: 07/26/18 [facility] Condition: Stable Prescriptions: No Action Naproxen Sodium [Aleve] 440 mg PO DAILY Mv-Mn/Folic Acid/Lutein/Nkl453 [Pawel Multi For Men Tablet] 1 tab PO DAILY Follow up with: MARY MERRITT [ACTIVE STAFF] - 08/04/18 1:30 pm (AT [facility] )
[2018-07-26] MEDS: THERAGRAN MULTIVITAMIN PO SCH (08:26)
[2018-07-26] MEDS: PROTONIX 40 MG IV IV SCH (08:26)
--- NOTE | 2018-07-26 13:08 | DS ---
DISCHARGE DIAGNOSES: 1) PNEUMONIA. 2) EMPYEMA. 3) HYPOXEMIA. HISTORY: The patient is a 53 year-old white male patient who began becoming ill approximately five days prior to his admission to the hospital when he arrived to the emergency room for evaluation. He was complaining of severe left-sided chest pain. He was tachypneic and ashen upon his initial appearance. HOSPITAL COURSE: For the first 24 hours thereafter he appeared to be acutely toxic. The patient did develop empyema on the left-side of the chest as well as pneumonia. He was placed on IV antibiotics. 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 Pulmonary consultation with Dr. Miguel Huang who felt the patient needed to be transferred to [facility] for decortication-type procedure for empyema. He has remained on IV antibiotics during his stay. He was felt ready for discharge on the morning of 07/26/2018 with the planned procedure on 07/27/[address] Zhou. The patient's discharge vital signs showed him to be afebrile, pulse 66, respiratory rate 21, blood pressure 119/63. O2 saturation 93% on room air. Labs prior to the day of discharge with white blood cell count 11,800, hemoglobin 11.4, PLT count 291,000 with a left shift of 1 band and 83 polys. His sugar is 132, BUN 24, creatinine 0.83. Electrolytes were normal. Liver enzymes were slightly elevated with SGPT 70. Blood cultures had been no growth thus far. His chest CT showed left basilar pulmonic infiltrate with air bronchograms, also showed layering left pleural effusion with oval-shaped convex pleural fluid collections within the left lower lobe lung field. The patient will be discharged by ambulance to [facility] in the care of Dr. Miguel Huang for pulmonary consult and Hospitalist at [facility] with planned procedure with Dr. Zhou.
== END 2018-07-26 08:52 | disposition short-term general hospital (02) | DRG 193 ==
LOC: ED 17:09 → MED SURG 22:10 → OBSVTOIN 07-21 10:23 → ED 07-21 17:09 → MED SURG 07-21 22:10
PROVIDERS: ADMIT Family Medicine; ATTEND Family Medicine
DX: J18.9 Pneumonia, unspecified organism (principal); J86.9 Pyothorax without fistula; J90 Pleural effusion, not elsewhere classified; R09.02 Hypoxemia; R06.82 Tachypnea, not elsewhere classified
CPT/HCPCS: 36000; 36415; 71045; 71046; 71250; 71260; 80053; 80061; 80202; 81001; 82150; 82805; 83605; 83690; 83721; 83880; 84484; 85025; 85379; 85610; 85652; 85730; 86140; 87040; 87493; 87631; 87651; 93005; 93041; 94150; 94640; 94760; 94762; 96360; 96361; 96365; 96374; 96375; 96376; 99285; G0378; J0456; J0696; J1650; J1885; J2270; J2405; J2543; J2920; J2930; J3370; J7609; A9270-GY